=== PATIENT | female | born 2005 | race Hispanic/Latino ===

== ENCOUNTER → 2025-03-24 07:40 | Outpatient (CLI) | payer OTHER, SELFPAY ==
--- NOTE | 2025-03-24 07:45 | DI.NM.S_ITS ---
PROCEDURE: NM GASTRIC EMPTYING STUDY RADIOPHARMACEUTICAL: 1 mCi Tc-99m sulfur colloid in an egg sandwich. INDICATIONS: nausea with vomitting TECHNIQUE: A Tc-99m labeled sulfur colloid labeled egg sandwich or oatmeal was served to the patient. Anterior and posterior planar images of the abdomen were obtained at 0 minutes and 30 minutes, then at hourly intervals up to 4 hours. The patient was upright and ambulating during the interval. COMPARISON: None. FINDINGS: The stomach has normal size, morphology, and position. There is normal emptying of solid gastric contents from the stomach by visual inspection. No gastroesophageal reflux is visualized. The percentage of tracer retained at specific time points are as follows: Time point Percent gastric retention Normal range 30 minutes 100% 70% or more 1 hour 79% 30% to 90% 2 hours 48% 60% or less 3 hours 14% 30% or less 4 hours 1% 10% or less IMPRESSION: Normal gastric emptying times. Dictated by: Wilfrido Laureano M.D. on 03/24/2025 at 14:37 Approved by: Wilfrido Laureano M.D. on 03/24/2025 at 14:39
== END ==
PROVIDERS: PCP Family Medicine; Referring Provider Nurse Practitioner Family; Visit Provider Nurse Practitioner Family
DX: R11.2 Nausea with vomiting, unspecified (principal)
CPT/HCPCS: 78264; A9541